=== PATIENT | female | born 1995 | race Caucasian/White ===

== ENCOUNTER 2017-10-29 19:35 | Emergency (ER) | payer SELFPAY ==
[~2017-10-29] VITALS: Ht 170.2 cm; Wt 125.2 kg
[2017-10-29 19:51] VITALS: Ht 170.2 cm; Wt 125.2 kg
[2017-10-29] MEDS ORDERED: ENAL10TA PO (22:50)
--- NOTE | 2017-10-29 22:53 | ERD ---
ER Documentation Chief Complaint Chief Complaint dizzy, n/v r/t elevated BP x 1 month, not taking BP meds, "ran out" HPI This is a 22-year-old female who is here for medication refill for her blood pressure medicine she said that she got her enalapril confiscated by customs when she came into [facility] last month. She has no symptoms of hypertensive issues such as headache dizziness shortness of breath chest pain focal neurological complaints ROS All systems reviewed and are negative except as per history of present illness. Medications Home Meds Active Scripts Enalapril Maleate* (Enalapril Maleate*) 10 Mg Tablet, 10 MG PO DAILY, #30 TAB Prov:ANSHUL PEDROZA DO 10/29/17 Allergies Allergies: Coded Allergies: No Known Allergy (Unverified , 10/29/17) PMhx/Soc Hx Alcohol Use: No Hx Substance Use: No Hx Tobacco Use: No Smoking Status: Never smoker FmHx Family History: No coronary disease Physical Exam Vitals Vital Signs Date Time Temp Pulse Resp B/P Pulse Ox O2 Delivery O2 Flow Rate FiO2 10/29/17 19:51 98.9 100 18 146/85 100 Physical Exam Const: Well-developed, well-nourished Head: Atraumatic, normocephalic Eyes: Normal Conjunctiva, PERRLA, EOMI, normal sclera, no nystagmus ENT: Normal External Ears, Nose and Mouth, moist mucus membranes. Neck: Full range of motion. No meningismus, no lymphadenopathy. Resp: Clear to auscultation bilaterally, no wheezing, rhonchi, rales Cardio: Regular rate and rhythm, no murmurs, S1 S2 present Abd: Soft, non tender x 4, non distended. Normal bowel sounds, no guarding or rebound, no pulsitile abdominal masses or bruits Skin: No petechiae or rashes, no ecchymosis , no maculopapular rash Back: No midline or flank tenderness Ext: No cyanosis, or edema, FROM x 4, normal inspection, neurovascularly intact x 4 Neur: Awake and alert, STR 5/5 x 4, sensation intact x 4, no focal findings, cerebellum intact Psych: Normal Mood and Affect Procedures/MDM We will give a prescription for Enalapril for refill Departure Diagnosis: Primary Impression: Medication refill Condition: Stable Patient Instructions: Taking Medicine Safely ANSHUL PEDROZA DO Oct 29, 2017 22:53
[2017-10-29 23:06] VITALS: BP 133/71; PULSE 67; RESP 18; TEMP 98.4
== END 2017-10-29 23:10 | disposition home or self-care (01) ==
LOC: FTE 19:35
DX: Z76.0 Encounter for issue of repeat prescription (principal); I10 Essential (primary) hypertension
CPT/HCPCS: 99281

== ENCOUNTER 2018-01-12 12:32 | Emergency (ER) | END 2018-01-12 17:49 | disposition home or self-care (01) ==

== ENCOUNTER 2018-02-25 10:33 | Emergency (ER) | END 2018-02-25 12:34 | disposition home or self-care (01) ==

== ENCOUNTER 2018-03-26 01:39 | Emergency (ER) | END 2018-03-26 06:26 | disposition home or self-care (01) ==